=== PATIENT | female | born 1965 | race Caucasian/White ===

== ENCOUNTER → 2019-11-13 | Outpatient (CLI) | payer MEDICAID ==
--- NOTE | 2019-11-14 08:27 | KCIC ---
MRI of the lumbar spine without contrast 11/13/2019 CLINICAL HISTORY: Chronic low back pain which radiates down the right leg. Technique: Unenhanced T1-weighted and T2-weighted sagittal and axial and inversion recovery sagittal images of the lumbar spine were obtained. FINDINGS: Minimal S-shaped curvature of the thoracolumbar spine is seen. Mild anterolisthesis of L5 in relation to S1 is noted. Degenerative signal changes are seen involving the L3-4, L4-5 and L5-S1 discs. Loss of height of the L5-S1 disc is noted. A 5 mm hemangioma is seen involving the L5 vertebral body. The conus medullaris is normal morphology, position, and signal characteristics. The L1-2 and L2-3 disc spaces are within normal limits. At the L3-4 disc space there is a minimal generalized disc bulge. Degenerative changes are seen involving the facet joints bilaterally. There is mild ligamentum flavum hypertrophy bilaterally. These findings when combined do not result in significant central spinal canal or neural foraminal stenosis. At the L4-5 disc space there is a mild generalized disc bulge. Degenerative changes are seen involving the facet joints bilaterally. There are small facet joint effusions bilaterally. There is mild ligamentum flavum hypertrophy bilaterally. These findings when combined do not result in significant central spinal canal or neural foraminal stenosis. At the L5-S1 disc space there is a mild generalized disc bulge. Degenerative changes are seen involving the facet joints, right greater than left. There is moderate ligamentum flavum hypertrophy bilaterally. These findings when combined result in mild central spinal canal stenosis. Mild to moderate right greater than left neural foraminal stenosis is seen. IMPRESSION: The changes of degenerative disc disease are seen throughout the mid and lower lumbar spine. These findings result in mild central spinal canal stenosis with mild to moderate right greater than left neural foraminal stenosis at L5-S1. Electronically signed by: Joes Rangel MD (11/14/2019 8:24 AM) [id number]
== END | disposition home or self-care (01) ==
LOC: KCIC MRI 16:52
PROVIDERS: ATTEND Family Medicine
DX: M48.07 Spinal stenosis, lumbosacral region (principal); M51.36 Other intervertebral disc degeneration, lumbar region; M25.48 Effusion, other site; G89.29 Other chronic pain
CPT/HCPCS: 72148

== ENCOUNTER → 2020-07-12 | Outpatient (CLI) | payer MEDICAID ==
--- NOTE | 2020-07-12 13:37 | KCIC ---
STUDY: MRI of the right knee without contrast INDICATION: Right knee pain. COMPARISON: None. TECHNIQUE: Multiplanar MR imaging of the right knee performed without the use of intravenous or intra-articular contrast. FINDINGS: Menisci: Heterogeneous anterior horn and root of the lateral meniscus but without a discrete tear in this region. Mild free edge fraying of the lateral meniscus such is seen along the posterior horn. The radial meniscus is intact. Cruciate ligaments: Intact. Collateral ligaments: Intact. Tendons: Intact extensor mechanism. The additional tendons at the knee are intact. Cartilage: Patellofemoral: Full-thickness chondral loss along much of the lateral patellar facet with subchondral marrow edema/cystic change. Full-thickness chondrosis along a large portion of the lateral trochlea and extending to involve some of the trochlear groove where subchondral edema/cystic change is most pronounced. Medial trochlear chondrosis appears partial thickness. Lateral compartment: The greatest degree of chondrosis seen at the more posterior lateral tibial plateau and the overlying proximal nonweightbearing lateral femoral condyle which is at least high-grade partial-thickness, image 18 series 6. Medial compartment: Partial thickness chondrosis predominantly at the weightbearing aspect. Bones: Intraosseous ganglia subjacent to the PCL and medial meniscus posterior root insertions. Joint line and patellofemoral compartment osteophytes. No acute fracture or focally aggressive marrow signal abnormality. Miscellaneous: Moderate volume knee joint effusion with mild synovitis. Tiny Braun's cyst. Scattered subcutaneous left popliteal fossa edema. IMPRESSION: 1. No discrete tear of either meniscus though there is some free edge fraying of the lateral meniscus body and posterior horn. Intact cruciate and collateral ligaments. 2. 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 Tricompartmental osteophyte formation. 3. Moderate volume knee joint effusion with mild synovitis. Electronically signed by: GIGI COUCH MD (07/12/2020 1:34 PM) [place] [id number]
== END | disposition home or self-care (01) ==
LOC: KCIC MRI 09:20
PROVIDERS: ATTEND Family Medicine
DX: M25.461 Effusion, right knee (principal); M65.88 Other synovitis and tenosynovitis, other site
CPT/HCPCS: 73721